=== PATIENT | female | born 2000 | race African-American/Black ===

== ENCOUNTER 2022-11-13 20:00 | Emergency (ER) | payer SELFPAY ==
[2022-11-13 20:06] VITALS: BP 117/79; PULSE 93; RESP 20; TEMP 36.2; O2SAT 99; BMI 26.7
--- NOTE | 2022-11-13 20:06 | ED_ITS ---
HPI - General Adult General Chief complaint: General Medical <Ekta Valentine CNP - Last Filed: 11/13/22 20:10> Stated complaint: L arm pain <Ekta Valentine CNP - Last Filed: 11/13/22 20:10> Time Seen by Provider: 11/13/22 21:50 <Ekta Valentine CNP - Last Filed: 11/13/22 20:10> Source: patient <Aric Berger MD - Last Filed: 11/13/22 22:57> Mode of arrival: ambulatory <Aric Berger MD - Last Filed: 11/13/22 22:57> Limitations: no limitations <Aric Berger MD - Last Filed: 11/13/22 22:57> History of Present Illness HPI narrative: Patient 22 years old history of anxiety not any medication 30 minutes prior to arrival noticed left arm numbness feel legs in sleep with no weakness also felt some throat pain denies any anxiety but seems to be anxious. No chest pain no shortness of breath no neck pain <Aric Berger MD - Last Filed: 11/13/22 22:57> Related Data Allergies/adverse reactions: Allergies Allergy/AdvReac Type Severity Reaction Status Date / Time No Known Allergies Allergy Verified 11/13/22 20:09 <Ekta Valentine CNP - Last Filed: 11/13/22 20:10> Review of Systems Review of Systems: Yes all other systems are reviewed and are negative <Aric Berger MD - Last Filed: 11/13/22 22:57> [facility] Social History Social History: Social History Alcohol intake: never Smoked in Last 30 Days: No Use of substances other than those prescribed or required for medical reasons: No Advance Directives: No Advance Directives Information Provided: No Patient : No <Ekta Valentine CNP - Last Filed: 11/13/22 20:10> Physical Exam ED Vital Signs: Vital Signs - 24 hr 11/13/22 20:06 11/13/22 22:00 Temperature 97.2 F 98.1 F Pulse Rate 93 77 Respiratory Rate 20 16 Blood Pressure 117/79 110/58 L Pulse Oximetry 99 99 Oxygen Delivery Method Room Air Room Air BMI result Body Mass Index 26.7 <Ekta Valentine CNP - Last Filed: 11/13/22 20:10> Vital Signs - 24 hr 11/13/22 20:06 11/13/22 22:00 Temperature 97.2 F 98.1 F Pulse Rate 93 77 Respiratory Rate 20 16 Blood Pressure 117/79 110/58 L Pulse Oximetry 99 99 Oxygen Delivery Method Room Air Room Air BMI result Body Mass Index 26.7 <Aric Berger MD - Last Filed: 11/13/22 22:57> Appearance: Alert. Oriented X3. No acute distress. Anxious Eyes: PERRLA, No Nystagmus ENT: Pharynx normal. Oral Mucosa moist Neck: Normal inspection. Neck supple. CVS: Normal heart rate and rhythm. Pulses normal. Respiratory: No respiratory distress. Equal air entry bilateral, no wheezing/rales/rhonchi Abdomen: Soft and nontender. Bowel sounds are present, no mass palpable, no CVA tenderness Skin: Skin warm and dry. Normal skin color. Normal skin turgor. Extremities: No lower extremity edema. No calf tenderness Neuro: Oriented X 3. No motor deficit. No sensory deficit.No cerebellar signs , cranial nerves II-XII intact DTR 2+ bilateral symmetrical <Aric Berger MD - Last Filed: 11/13/22 22:57> Course Course Course Narrative: This is an RME: Additional HPI, ROS, PE not included below will be deferred to primary provider. Patient is a 22 old female with no reported past medical history presenting to the emergency department for evaluation. Patient states that tonight she suddenly felt pain in her throat/ anterior neck. She began to feel very weak, like she was going to lose her strength/ pass out, so then she laid down in bed. Then began feeling pain in the right arm and subsequently the left arm. She began having numbness to both arms. Currently without any pain or numbness to the right arm. However left arm numbness persists at this time, no weakness. She states that it feels it is difficult to take a deep breath. Denies chest pain, nausea, vomiting, abdominal pain. No focal neurological deficits upon examination. PE: Labs, EKG, viral testing, urinalysis, urine <Ekta Valentine CNP - Last Filed: 11/13/22 20:10> Medical Decision Making Medical Decision Making [facility] Narrative: Patient with passes of left arm likely from pinched nerve labs are stable will discharge patient home <Aric Berger MD - Last Filed: 11/13/22 22:57> Lab Data [facility] Lab Attestation statement: I reviewed the patient's lab results. <Aric Berger MD - Last Filed: 11/13/22 22:57> Result Diagrams: 11/13/22 22:08 11/13/22 22:08 <Ekta Valentine CNP - Last Filed: 11/13/22 20:10> Labs: Lab Results 11/13/22 11/13/22 11/13/22 Range/Units 22:08 22:08 22:08 WBC 8.7 (4.8-10.8) X10*3/uL RBC 4.37 (4.20-5.50) X10*6/uL Hgb 11.6 L (12.0-16.0) g/dl Hct 36.5 L (37.0-47.0) % MCV 83.5 (80.0-98.0) fL MCH 26.5 L (27.0-33.0) pg MCHC 31.8 (31.0-35.0) g/dl RDW 14.3 (11.0-16.0) % Plt Count 313 (160-400) X10*3/uL MPV 9.9 (9.4-12.3) fL Immature Gran % (Auto) 0.2 (0.0-0.4) % Neut % (Auto) 64.1 (45-73) % Lymph % (Auto) 25.5 (20-40) % [place] % (Auto) 7.6 (2-11) % Eos % (Auto) 2.1 (0-4) % Baso % (Auto) 0.5 (0-2) % Lymph # (Auto) 2.2 (1.2-4.9) X10*3/uL [place] # (Auto) 0.7 (0.1-1.2) X10*3/uL Eos # (Auto) 0.2 (0.0-0.4) X10*3/uL Baso # (Auto) 0.0 (0.0-0.2) X10*3/uL Abs Immat Gran (auto) 0.02 (0.00-0.03) X10*3/uL Absolute Neuts (auto) 5.5 (2.0-8.3) x10*3/uL Absolute Nucleated RBC 0.000 (0.0-0.012) X10*3/uL Nucleated RBC % (auto) 0.0 (0.0-0.2) /100WBC Sodium 137 (135-145) mmol/L Potassium 4.3 (3.3-5.1) mmol/L Chloride 104 (96-108) mmol/L Carbon Dioxide 27 (22-29) mmol/L Anion Gap 10 L (12-20) BUN 9 (9-16) mg/dL Creatinine 0.70 (0.5-1.4) mg/dL Estim Creat Clear Calc 102.0 Estimated GFR > 60 Random Glucose 104 (60-115) mg/dL Calcium 9.2 (8.4-10.2) mg/dL Magnesium 2.0 (1.6-2.6) mg/dL Total Bilirubin 0.3 (0.0-1.0) mg/dL AST 19 (5-31) U/L ALT 14 (0-31) U/L Alkaline Phosphatase 81 (39-117) U/L Troponin I High Sens < 3.5 (<3.5-17.0) ng/L Total Protein 7.9 (6.5-8.0) g/dL Albumin 4.6 (3.5-5.0) g/dL <Ekta Valentine, [employer] - Last Filed: 11/13/22 20:10> Lab Results 11/13/22 11/13/22 11/13/22 Range/Units 22:08 22:08 22:08 WBC 8.7 (4.8-10.8) X10*3/uL RBC 4.37 (4.20-5.50) X10*6/uL Hgb 11.6 L (12.0-16.0) g/dl Hct 36.5 L (37.0-47.0) % MCV 83.5 (80.0-98.0) fL MCH 26.5 L (27.0-33.0) pg MCHC 31.8 (31.0-35.0) g/dl RDW 14.3 (11.0-16.0) % Plt Count 313 (160-400) X10*3/uL MPV 9.9 (9.4-12.3) fL Immature Gran % (Auto) 0.2 (0.0-0.4) % Neut % (Auto) 64.1 (45-73) % Lymph % (Auto) 25.5 (20-40) % [place] % (Auto) 7.6 (2-11) % Eos % (Auto) 2.1 (0-4) % Baso % (Auto) 0.5 (0-2) % Lymph # (Auto) 2.2 (1.2-4.9) X10*3/uL [place] # (Auto) 0.7 (0.1-1.2) X10*3/uL Eos # (Auto) 0.2 (0.0-0.4) X10*3/uL Baso # (Auto) 0.0 (0.0-0.2) X10*3/uL Abs Immat Gran (auto) 0.02 (0.00-0.03) X10*3/uL Absolute Neuts (auto) 5.5 (2.0-8.3) x10*3/uL Absolute Nucleated RBC 0.000 (0.0-0.012) X10*3/uL Nucleated RBC % (auto) 0.0 (0.0-0.2) /100WBC Sodium 137 (135-145) mmol/L Potassium 4.3 (3.3-5.1) mmol/L Chloride 104 (96-108) mmol/L Carbon Dioxide 27 (22-29) mmol/L Anion Gap 10 L (12-20) BUN 9 (9-16) mg/dL Creatinine 0.70 (0.5-1.4) mg/dL Estim Creat Clear Calc 102.0 Estimated GFR > 60 Random Glucose 104 (60-115) mg/dL Calcium 9.2 (8.4-10.2) mg/dL Magnesium 2.0 (1.6-2.6) mg/dL Total Bilirubin 0.3 (0.0-1.0) mg/dL AST 19 (5-31) U/L ALT 14 (0-31) U/L Alkaline Phosphatase 81 (39-117) U/L Troponin I High Sens < 3.5 (<3.5-17.0) ng/L Total Protein 7.9 (6.5-8.0) g/dL Albumin 4.6 (3.5-5.0) g/dL <Aric Berger MD - Last Filed: 11/13/22 22:57> Discharge Plan Discharge Clinical Impression: Paresthesia of arm <Ekta Valentine CNP - Last Filed: 11/13/22 20:10> Patient Disposition: Home, Self-Care <Ekta Valentine CNP - Last Filed: 11/13/22 20:10> Instructions: Paresthesia (ED) <Ekta Valentine CNP - Last Filed: 11/13/22 20:10> Additional Instructions: numbness sensation will go way of its own is likely from pinched nerve Follow with PCP if any concerns <Ekta Valentine CNP - Last Filed: 11/13/22 20:10>
--- NOTE | 2022-11-13 20:11 | ECG_ITS ---
Test Reason : CHEST PAIN Blood Pressure : / mmHG Vent. Rate : 081 BPM Atrial Rate : 081 BPM P-R Int : 168 ms QRS Dur : 082 ms QT Int : 370 ms P-R-T Axes : 072 061 056 degrees QTc Int : 429 ms Normal sinus rhythm Normal ECG No previous ECGs available Referred By: Ekta Valentine Electronically Signed By:Steven Negrete
[2022-11-13 22:00] VITALS: BP 110/58; PULSE 77; RESP 16; TEMP 36.7; O2SAT 99
[2022-11-13 22:13] LABS: MANUAL DIFF FLAG NO
[2022-11-13 22:15] LABS: Basophils Percent Auto 0.5 % (0-2); Eosinophils Absolute Auto 0.2 X10*3/uL (0.0-0.4); Eosinophils Percent Auto 2.1 % (0-4); Hematocrit 36.5 % (37.0-47.0); Hemoglobin 11.6 g/dl (12.0-16.0); Imm Gran Abs Auto 0.02 X10*3/uL (0.00-0.03); Imm Gran Pct Auto 0.2 % (0.0-0.4); Lymphocytes Absolute Auto 2.2 X10*3/uL (1.2-4.9); Lymphocytes Percent Auto 25.5 % (20-40); Mean Corpuscular HGB Conc 31.8 g/dl (31.0-35.0); Mean Corpuscular Hemoglobin 26.5 pg (27.0-33.0); Mean Corpuscular Volume 83.5 fL (80.0-98.0); Mean Platelet Volume 9.9 fL (9.4-12.3); Monocytes Absolute Auto 0.7 X10*3/uL (0.1-1.2); Monocytes Percent Auto 7.6 % (2-11); Neutrophils Absolute Auto 5.5 x10*3/uL (2.0-8.3); Neutrophils Percent Auto 64.1 % (45-73); Platelet Count 313 X10*3/uL (160-400); Red Blood Count 4.37 X10*6/uL (4.20-5.50); Red Cell Distribution Width 14.3 % (11.0-16.0); White Blood Count 8.7 X10*3/uL (4.8-10.8)
[2022-11-13 22:29] LABS: Alanine Aminotransferase 14 U/L (0-31); Albumin Level 4.6 g/dL (3.5-5.0); Alkaline Phosphatase 81 U/L (39-117); Anion Gap 10 (12-20); Aspartate Amino Transferase 19 U/L (5-31); Bilirubin Total 0.3 mg/dL (0.0-1.0); Blood Urea Nitrogen 9 mg/dL (9-16); Calcium 9.2 mg/dL (8.4-10.2); Carbon Dioxide 27 mmol/L (22-29); Chloride 104 mmol/L (96-108); Estimated Glomerular Filt Rate > 60; Glucose Random 104 mg/dL (60-115); Potassium 4.3 mmol/L (3.3-5.1); Sodium 137 mmol/L (135-145); Total Protein 7.9 g/dL (6.5-8.0)
[2022-11-13 22:40] LABS: Troponin-I High Sensitivity < 3.5 ng/L (<3.5-17.0)
== END 2022-11-13 23:16 | disposition home or self-care (01) ==
PROVIDERS: Nurse Practitioner Family; Emergency Provider Internal Medicine
DX: R20.2 Paresthesia of skin (principal); R07.89 Other chest pain; Z79.899 Other long term (current) drug therapy
CPT/HCPCS: 36415; 80053; 83735; 84484; 85025; 93005; 99284